=== PATIENT | male | born 1995 | race American Indian/Alaskan Native ===

== ENCOUNTER 2021-05-05 21:38 | Emergency (ER) | payer SELFPAY ==
[2021-05-05 22:48] VITALS: BP 115/67
[2021-05-05] MEDS ORDERED: LIDOCAINE-MPF (1%) 10 MG/1 ML VIAL 5 ML INFILTRATI ONE (22:54)
--- NOTE | 2021-05-05 22:59 | Emergency Department Report ---
ED ENT HPI - General Chief complaint: Dental/Oral Stated complaint: MOUTH PAIN/POSSIBLE STD Time Seen by Provider: 05/05/21 22:47 Source: patient Mode of arrival: Ambulatory Limitations: No Limitations - History of Present Illness Initial comments: Patient is a 25-year-old male presents emergency room with complaints of 2 complaints. Patient states that his first complaint is that he is having lower gumline pain for the last few days. He denies any dental pain. He denies any facial swelling, difficulty swallowing, difficulty breathing, fever. He states he has not seen a dentist in multiple years. Patient also presents emergency room due to his partner advising him that they tested positive for chlamydia. He denies any symptoms. Patient does not report any dysuria, penile discharge, abdominal pain, pain or swelling the testicles. Patient denies any past medical history. Patient denies any allergies to medications. - Related Data Previous Rx's Medication Instructions Recorded Last Taken Type Chlorhexidine Mouthwash [Peridex] 15 ml MM BID #1 bottle 05/05/21 Unknown Rx Doxycycline Hyclate [Doxycycline 100 mg PO Q12HR 7 Days #14 tab 05/05/21 Unknown Rx Hyclate TAB] Allergies Allergy/AdvReac Type Severity Reaction Status Date / Time No Known Allergies Allergy Verified 05/05/21 23:05 ED Dental HPI - General Chief complaint: Dental/Oral Stated complaint: MOUTH PAIN/POSSIBLE STD Time Seen by Provider: 05/05/21 22:47 Source: patient Mode of arrival: Ambulatory Limitations: No Limitations - Related Data Previous Rx's Medication Instructions Recorded Last Taken Type Chlorhexidine Mouthwash [Peridex] 15 ml MM BID #1 bottle 05/05/21 Unknown Rx Doxycycline Hyclate [Doxycycline 100 mg PO Q12HR 7 Days #14 tab 05/05/21 Unknown Rx Hyclate TAB] Allergies Allergy/AdvReac Type Severity Reaction Status Date / Time No Known Allergies Allergy Verified 05/05/21 23:05 ED Review of Systems ROS: Stated complaint: MOUTH PAIN/POSSIBLE STD Other details as noted in HPI Comment: All other systems reviewed and negative ED Past Medical Hx - Past Medical History Previous Medical History?: No - Surgical History Past Surgical History?: No - Medications Home Medications: Home Medications Medication Instructions Recorded Confirmed Last Taken Type Chlorhexidine Mouthwash [Peridex] 15 ml MM BID #1 bottle 05/05/21 Unknown Rx Doxycycline Hyclate [Doxycycline 100 mg PO Q12HR 7 Days #14 tab 05/05/21 Unknown Rx Hyclate TAB] ED Physical Exam - General Limitations: No Limitations General appearance: alert, in no apparent distress - Head Head exam: Present: atraumatic, normocephalic - Eye Eye exam: Present: normal appearance - ENT ENT exam: Present: mucous membranes moist, other (small shallow ulceration present to the front, lower gumline, no gum edema, no dental ttp, no facial edema, uvula is midline, no uvular edema or deviation, no trismus, no tongue elevation) - Respiratory Respiratory exam: Absent: respiratory distress, accessory muscle use - Neurological Exam Neurological exam: Present: alert, oriented X3 - Psychiatric Psychiatric exam: Present: normal affect, normal mood - Skin Skin exam: Present: warm, dry, intact ED Course Vital Signs 05/05/21 22:42 Temperature 97.7 F Pulse Rate 67 Respiratory 16 Rate Blood Pressure 115/67 [Left] O2 Sat by Pulse 98 Oximetry ED Medical Decision Making - Medical Decision Making Patient is a 25-year-old male presents emergency room with complaints of 2 complaints. Patient states that his first complaint is that he is having lower gumline pain for the last few days. He denies any dental pain. He denies any facial swelling, difficulty swallowing, difficulty breathing, fever. He states he has not seen a dentist in multiple years. Patient also presents emergency room due to his partner advising him that they tested positive for chlamydia. He denies any symptoms. Patient does not report any dysuria, penile discharge, abdominal pain, pain or swelling the testicles. Patient denies any past medical history. Patient denies any allergies to medications. Vitals are normal. On exam:small shallow ulceration present to the front, lower gumline, no gum edema, no dental ttp, no facial edema, uvula is midline, no uvular edema or deviation, no trismus, no tongue elevation. No signs of dental abscess. Patient given prescription for Peridex, discussed salt water gargles, Orajel and following up with a dentist. Due to known STD exposure, patient given Rocephin IM while in the emergency room and given prescription for doxycycline. Advised patient Please take medication as prescribed. gargle with warm salt water. may use orajel over the counter. Follow-up with a primary care doctor. follow up with a dentist. Please follow-up with all department or clinic in order to have a full STD panel. Please have any partners tested and treated as well. Avoid sexual intercourse. Return to emergency room for any new or worsening symptoms. Critical care attestation.: If time is entered above; I have spent that time in minutes in the direct care of this critically ill patient, excluding procedure time. ED Disposition Clinical Impression: Pain in gums, Ulcer, STD exposure Disposition: HOME / SELF CARE / HOMELESS Is pt being admited?: No Does the pt Need Aspirin: No Condition: Stable Additional Instructions: Please take medication as prescribed. gargle with warm salt water. may use orajel over the counter. Follow-up with a primary care doctor. follow up with a dentist. Please follow-up with all department or clinic in order to have a full STD panel. Please have any partners tested and treated as well. Avoid sexual intercourse. Return to emergency room for any new or worsening symptoms. walk in clinic STD testing: [facility] in [place], [place] Address: [address] [place] [id number] Prescriptions: Doxycycline Hyclate [Doxycycline Hyclate TAB] 100 mg PO Q12HR 7 Days #14 tab Chlorhexidine Mouthwash [Peridex] 15 ml MM BID #1 bottle Referrals: [facility] [Outside] - 3-[address] [facility] [Provider Group] - 3-5 Days a, dentist [Other] - 3-5 Days Time of Disposition: 22:57 Print Language: ARABIC
== END 2021-05-06 00:01 | disposition home or self-care (01) ==
LOC: ED 21:38
DX: K06.9 Disorder of gingiva and edentulous alveolar ridge, unspecified (principal); L98.499 Non-pressure chronic ulcer of skin of other sites with unspecified severity; Z20.2 Contact with and (suspected) exposure to infections with a predominantly sexual mode of transmission
CPT/HCPCS: 96372; 99282; J0696

== ENCOUNTER 2021-05-16 15:13 | Emergency (ER) | payer SELFPAY ==
[2021-05-16] MEDS ORDERED: IBUPROFEN 800 MG TAB PO ONE (15:34)
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
[2021-05-16 17:16] VITALS: BP 98/56
== END 2021-05-16 17:43 | disposition home or self-care (01) ==
LOC: ED 15:13
DX: S52.122A Displaced fracture of head of left radius, initial encounter for closed fracture (principal); S39.012A Strain of muscle, fascia and tendon of lower back, initial encounter; Z79.899 Other long term (current) drug therapy; V89.2XXA Person injured in unspecified motor-vehicle accident, traffic, initial encounter; Y93.89 Activity, other specified; Y92.488 Other paved roadways as the place of occurrence of the external cause; Y99.8 Other external cause status
CPT/HCPCS: 72100; 99284